=== PATIENT | female | born 1975 | race Two or more races ===

== ENCOUNTER 2022-07-05 01:32 | Inpatient (IN) | payer OTHER ==
[~2022-07-05] VITALS: Ht 124.5 cm; Wt 72.6 kg
[2022-07-05 02:15] LABS: Urine Bacteria FEW /hpf (None Seen); Urine Blood 3+ /uL (Negative); Urine Specific Gravity 1.002 (1.001-1.035); Urine WBC 2 /hpf (0 - 5)
[2022-07-05 02:19] LABS: Basophils # (auto) 0 10 ^3/uL (0-0.2); Basophils % (auto) 0.5 % (0.0-2.0); Eosinophils # (auto) 0.1 10 ^3/uL (0-0.8); Hemoglobin 11.5 g/dL (12.2-16.2); Lymphocytes # (auto) 2.3 10 ^3/uL (0.4-5.4); Mean Corpuscular Hemoglobin 25.8 pg (28.0-32.0); Mean Corpuscular Hgb Conc. 32.1 g/dL (32.0-36.0); Mean Corpuscular Volume 80.2 fL (80.0-100.0); Red Cell Distribution Width 16.2 % (11.8-14.3)
[2022-07-05 02:21] LABS: Eosinophils % (auto) 1.4 % (0.0-7.0); Hematocrit 35.6 % (36.0-46.0); Lymphocytes % (auto) 28.9 % (10.0-50.0); Monocytes # (auto) 0.7 10 ^3/uL (0-1.3); Monocytes % (auto) 8.4 % (0.0-12.0); Neutrophils # (auto) 4.8 10 ^3/uL (1.6-8.6); Neutrophils % (auto) 60.8 % (37.0-80.0); Red Blood Cells 4.45 10^6/uL (4.0-5.20); White Blood Cell 7.8 10^3/uL (4.4-10.8)
[2022-07-05 02:39] LABS: Albumin 3.6 g/dL (3.4-5.0); Calcium 8.7 mg/dL (8.5-10.1); Potassium 3.8 mmol/L (3.5-5.1)
[2022-07-05 02:42] LABS: BUN/Creatinine Ratio 21.3; Bilirubin, Total 0.2 mg/dL (0.2-1.0); Total Protein 6.8 g/dL (6.4-8.2)
[2022-07-05] MEDS ORDERED: ASPirin 325 MG TAB PO ONE (04:00)
[2022-07-05] MEDS ORDERED: NITROGLYCERIN 0.4 MG SL TAB SL ONE (04:00)
[2022-07-05] MEDS ORDERED: ONDANSETRON HCL 4 MG/2 ML VIAL IV PRN (11:30)
[2022-07-05] MEDS ORDERED: DOCUSATE SOD 100 MG CAP PO PRN (11:30)
[2022-07-05] MEDS ORDERED: MORPHINE SULFATE INJ 2 MG/ml SYRG IV PRN (11:30)
[2022-07-05] MEDS ORDERED: hydrALAZINE HCL 20 MG/ML VL IV PRN (12:00)
[2022-07-05] MEDS: ACETAMINOPHEN 325 MG TAB PO PRN (18:32)
[2022-07-05] MEDS: HYDROcodone-ACET 5/325MG TAB PO PRN (21:42)
[2022-07-05 22:00] VITALS: BP 134/70
[2022-07-06] VITALS (7 sets, daily range): BP systolic 105–138; BP diastolic 52–80
[2022-07-06] MEDS: ACETAMINOPHEN 325 MG TAB PO PRN (04:07)
[2022-07-06 07:32] LABS: Eosinophils # (auto) 0 10 ^3/uL (0-0.8); Lymphocytes # (auto) 1.2 10 ^3/uL (0.4-5.4); Monocytes # (auto) 0.5 10 ^3/uL (0-1.3)
[2022-07-06 07:33] LABS: Basophils # (auto) 0 10 ^3/uL (0-0.2); Basophils % (auto) 0.4 % (0.0-2.0); Eosinophils % (auto) 0.4 % (0.0-7.0); Hematocrit 34.5 % (36.0-46.0); Hemoglobin 11.3 g/dL (12.2-16.2); Lymphocytes % (auto) 12.3 % (10.0-50.0); Mean Corpuscular Hemoglobin 25.7 pg (28.0-32.0); Mean Corpuscular Hgb Conc. 32.7 g/dL (32.0-36.0); Mean Corpuscular Volume 78.4 fL (80.0-100.0); Monocytes % (auto) 5.3 % (0.0-12.0); Neutrophils % (auto) 81.6 % (37.0-80.0); Red Cell Distribution Width 15.9 % (11.8-14.3); White Blood Cell 9.8 10^3/uL (4.4-10.8)
[2022-07-06 07:54] LABS: Albumin 3.2 g/dL (3.4-5.0); BUN/Creatinine Ratio 23.9; Calcium 8.4 mg/dL (8.5-10.1); Potassium 4.2 mmol/L (3.5-5.1)
[2022-07-06 07:57] LABS: Bilirubin, Total 0.2 mg/dL (0.2-1.0); Total Protein 6.1 g/dL (6.4-8.2)
[2022-07-06] MEDS ORDERED: ZINC SULFATE 220mg CAP or TAB PO SCH (10:00)
[2022-07-06] MEDS ORDERED: ENOXAPARIN SOD 40 MG/0.4 ML SYRINGE SC SCH (10:00)
[2022-07-06] MEDS: HYDROcodone-ACET 5/325MG TAB PO PRN (12:49)
[2022-07-06] MEDS: ATORVASTATIN 20 MG TAB PO SCH (21:25)
[2022-07-07] VITALS (7 sets, daily range): BP systolic 114–126; BP diastolic 55–77
[2022-07-07] MEDS ORDERED: ADENOSINE 59 MG in GIVE UN-DILUTED 0 ML IV ONE (08:45)
[2022-07-07] MEDS ORDERED: ASPirin 81 mg TAB PO SCH (10:00)
[2022-07-07] MEDS ORDERED: IOHEXOL 350 MG/ML 100ML IJ ONE ×2 (13:47→14:52)
[2022-07-07] MEDS: ATORVASTATIN 20 MG TAB PO SCH (21:13)
== END 2022-07-07 22:37 | disposition home or self-care (01) | DRG 303 ==
LOC: ER 01:34 → TELE 11:23 → TELE-WESTW 22:00
PROVIDERS: ADMIT Internal Medicine; ATTEND Internal Medicine
DX: I25.10 Atherosclerotic heart disease of native coronary artery without angina pectoris (principal); Z68.42 Body mass index [BMI] 45.0-49.9, adult; D64.9 Anemia, unspecified; Z20.822 Contact with and (suspected) exposure to COVID-19; E66.01 Morbid (severe) obesity due to excess calories; I10 Essential (primary) hypertension; Z82.49 Family history of ischemic heart disease and other diseases of the circulatory system; Z83.3 Family history of diabetes mellitus
CPT/HCPCS: 36415; 71045; 71275; 73200; 78452; 80053; 81001; 83880; 84484; 85025; 93005; 93017; 93306; G0378; J0153